=== PATIENT | male | born 1975 | race Caucasian/White ===

== ENCOUNTER 2017-06-30 06:05 | Day surgery (SDC) | payer BC ==
[2017-06-26 14:52] LABS: BASOPHILS % (AUTO) 0.3 % (0-1); EOSINOPHILS # (AUTO) 0.3 X10'3 (0-0.9); EOSINOPHILS % (AUTO) 3.7 % (0-6); LYMPHOCYTES # (AUTO) 2.9 X10'3 (1.1-4.8); LYMPHOCYTES % (AUTO) 38.4 % (21-51); MEAN CORPUSCULAR HEMOGLOBIN 30.8 PG (27.0-31.0); MEAN CORPUSCULAR HGB CONC 35.3 % (33.0-36.5); MEAN CORPUSCULAR VOLUME 87.3 FL (78-98); MEAN PLATELET VOLUME 6.4 FL (7.4-10.4); MONOCYTES # (AUTO) 0.5 X10'3 (0-0.9); MONOCYTES % (AUTO) 6.6 % (2-12); NEUTROPHILS # (AUTO) 3.8 X10'3 (1.8-7.7); PRE OP HEMATOCRIT 39.5 % (42.0-52.0); PRE OP PLATELET COUNT 251 X10'3 (140-440); RED BLOOD COUNT 4.53 X10'6 (4.70-6.10); RED CELL DISTRIBUTION WIDTH 15.2 % (11.5-14.5)
[2017-06-26 15:05] LABS: CHLORIDE 104 MMOL/L (99-107); GLUCOSE 123 MG/DL (70-104); POTASSIUM 3.5 MMOL/L (3.5-5.1); SODIUM 140 MMOL/L (135-145); TOTAL CARBON DIOXIDE 25.7 MMOL/L (24-32)
[2017-06-26 15:06] LABS: ALANINE AMINOTRANSFERASE 39 U/L (12-78); ALBUMIN/GLOBULIN RATIO 1.1 (1.1-1.5); ALKALINE PHOSPHATASE 74 IU/L (46-116); ANION GAP 10 (8-16); ASPARTATE AMINO TRANSFERASE 22 U/L (10-37); BILIRUBIN,TOTAL 0.4 MG/DL (0.1-1.0); BLOOD UREA NITROGEN 19 MG/DL (7-18); BUN/CREATININE RATIO 17.3 (5.4-32.0); CALCIUM 8.9 MG/DL (8.5-10.1); TOTAL PROTEIN 7.8 G/DL (6.4-8.2); eGFR 74 ML/MIN
[~2017-06-30] VITALS: Ht 180.3 cm; Wt 123.8 kg
[~2017-06-30 06:05] MED LIST: AMLO-325 PO; CHOL100046 PO; CITA20TA11 PO; HC A TD; LISI2.5T2 PO; METF500T7 PO; TERB250T4 PO; cefazolin 1gm/NS 100mL 100 ML IV ONE; famotidine 20mg tablet PO ONE; ringers solution, lacted 1,000 ML IV SCH
[2017-06-30 06:15] VITALS: BP 145/98
[2017-06-30] MEDS ORDERED: BUPIVAcaine/PF 2.5 mg/ml (0.25%) 30ml vial ONE (06:47)
[2017-06-30] MEDS ORDERED: LIDOcaine 0.5% (5mg/ml) 50ml vial ONE (08:10)
[2017-06-30] MEDS ORDERED: fentaNYL/PF 50MCG/1 ML 2ML syringe ONE (08:13)
[2017-06-30] MEDS ORDERED: midazolam 2 mg/2 ml injection ONE (08:14)
[2017-06-30] MEDS ORDERED: sodium bicarbonate 1 MEQ/1 ml inj ONE (08:29)
[2017-06-30] MEDS ORDERED: propofol inj 20 ML IV ONE (08:29)
[2017-06-30] MEDS ORDERED: ringers solution, lacted 1,000 ML IV SCH (08:34)
[2017-06-30] MEDS ORDERED: morphine 2 MG/ML inj. syringe IV PRN ×2 (08:35)
[2017-06-30] MEDS ORDERED: proCHLORperazine 10 MG/2 ml inj IV PRN (08:35)
[2017-06-30] MEDS ORDERED: meperidine/PF 50mg/ml syringe IV PRN (08:35)
[2017-06-30] MEDS ORDERED: ondansetron/PF 4mg/2ml inj IV PRN (08:35)
[2017-06-30] MEDS ORDERED: fentaNYL/PF 50MCG/1 ML 2ML syringe IV PRN ×2 (08:35)
[2017-06-30 08:39] VITALS: BP 134/87
[2017-06-30 08:49] VITALS: BP 96/41
[2017-06-30 08:59] VITALS: BP 105/88
[2017-06-30 09:09] VITALS: BP 133/78
[2017-06-30 09:19] VITALS: BP 137/91
== END 2017-06-30 09:29 | disposition home or self-care (01) ==
LOC: PAS 06:05 → EDUNIT# 08:15 → PAS 09:29
PROVIDERS: ATTEND Orthopaedic Surgery Hand Surgery
DX: G56.01 Carpal tunnel syndrome, right upper limb (principal); G47.33 Obstructive sleep apnea (adult) (pediatric); I10 Essential (primary) hypertension; E11.9 Type 2 diabetes mellitus without complications; Z79.84 Long term (current) use of oral hypoglycemic drugs; Z72.89 Other problems related to lifestyle; Z79.899 Other long term (current) drug therapy
CPT/HCPCS: 29848; 36415; 80053; 82948; 85025; 93005; A6449; J0690; J2001; J2250; J2704; J3010; J3490; A7000; J7120

== ENCOUNTER 2017-08-18 05:51 | Day surgery (SDC) | payer BC ==
[~2017-08-18] VITALS: Ht 180.3 cm; Wt 124.0 kg
[~2017-08-18 05:51] MED LIST changes: +METF500T PO; -METF500T7 PO; +ceFAZolin 2gm in dextrose, iso 100 ML IV ONE; -cefazolin 1gm/NS 100mL 100 ML IV ONE
[2017-08-18] MEDS ORDERED: LIDOcaine 1% (10mg/ml) 2ml vial ONE (06:17)
[2017-08-18] MEDS ORDERED: BUPIVAcaine/PF 2.5 mg/ml (0.25%) 30ml vial ONE (06:44)
[2017-08-18 06:54] LABS: BASOPHILS # (AUTO) 0.1 X10'3 (0-0.2); BASOPHILS % (AUTO) 1.1 % (0-1); EOSINOPHILS # (AUTO) 0.4 X10'3 (0-0.9); EOSINOPHILS % (AUTO) 4.8 % (0-6); HEMATOCRIT 38.7 % (42.0-52.0); HEMOGLOBIN 13.5 g/dl (14.0-17.9); LYMPHOCYTES # (AUTO) 2.8 X10'3 (1.1-4.8); LYMPHOCYTES % (AUTO) 36.3 % (21-51); MEAN CORPUSCULAR HEMOGLOBIN 31.1 PG (27.0-31.0); MEAN PLATELET VOLUME 6.7 FL (7.4-10.4); MONOCYTES # (AUTO) 0.5 X10'3 (0-0.9); NEUTROPHILS % (AUTO) 50.8 % (42-75); PLATELET COUNT 288 X10'3 (140-440); RED BLOOD COUNT 4.35 X10'6 (4.70-6.10); RED CELL DISTRIBUTION WIDTH 15.3 % (11.5-14.5); WHITE BLOOD COUNT 7.8 X10'3 (4.5-11.0)
[2017-08-18 06:58] VITALS: BP 126/76
[2017-08-18 06:59] VITALS: BP 126/76
[2017-08-18 07:18] LABS: ALANINE AMINOTRANSFERASE 37 U/L (12-78); ALBUMIN 3.8 G/DL (3.4-5.0); ALBUMIN/GLOBULIN RATIO 1.1 (1.1-1.5); ALKALINE PHOSPHATASE 68 IU/L (46-116); ANION GAP 11 (8-16); ASPARTATE AMINO TRANSFERASE 16 U/L (10-37); BILIRUBIN,TOTAL 0.3 MG/DL (0.1-1.0); BLOOD UREA NITROGEN 21 MG/DL (7-18); BUN/CREATININE RATIO 20.2 (5.4-32.0); CALCIUM 8.5 MG/DL (8.5-10.1); CHLORIDE 104 MMOL/L (99-107); CREATININE 1.04 MG/DL (0.60-1.10); GLUCOSE 121 MG/DL (70-104); SODIUM 140 MMOL/L (135-145); TOTAL PROTEIN 7.3 G/DL (6.4-8.2); eGFR 79 ML/MIN
[2017-08-18] MEDS ORDERED: LIDOcaine 0.5% (5mg/ml) 50ml vial ONE (08:03)
[2017-08-18] MEDS ORDERED: midazolam 2 mg/2 ml injection ONE (08:05)
[2017-08-18] MEDS ORDERED: fentaNYL/PF 50MCG/1 ML 2ML syringe ONE (08:05)
[2017-08-18 08:30] VITALS: BP 117/88
[2017-08-18] MEDS ORDERED: propofol inj 20 ML IV ONE (08:30)
[2017-08-18] MEDS ORDERED: meperidine/PF 50mg/ml syringe IV PRN ×3 (08:35)
[2017-08-18] MEDS ORDERED: ondansetron/PF 4mg/2ml inj IV PRN (08:35)
[2017-08-18] MEDS ORDERED: proCHLORperazine 10 MG/2 ml inj IV PRN (08:35)
[2017-08-18] MEDS ORDERED: ketorolac trometh. 30mg/ml inj. IV ONE (08:35)
[2017-08-18] MEDS ORDERED: acetaminophen 1,000mg/100ml IV 100 ML IV PRN (08:35)
[2017-08-18] MEDS ORDERED: morphine 4 MG/ML inj SYRINge IV PRN ×2 (08:35)
[2017-08-18] MEDS ORDERED: ringers solution, lacted 1,000 ML IV SCH (08:35)
[2017-08-18 08:40] VITALS: BP 125/95
[2017-08-18 08:50] VITALS: BP 119/89
[2017-08-18 09:00] VITALS: BP 121/79
== END 2017-08-18 09:00 | disposition home or self-care (01) ==
LOC: PAS 05:51
PROVIDERS: ATTEND Orthopaedic Surgery Hand Surgery
DX: G56.02 Carpal tunnel syndrome, left upper limb (principal); G47.33 Obstructive sleep apnea (adult) (pediatric); E11.9 Type 2 diabetes mellitus without complications; E66.9 Obesity, unspecified; I10 Essential (primary) hypertension; Z79.2 Long term (current) use of antibiotics; Z79.84 Long term (current) use of oral hypoglycemic drugs; Z79.891 Long term (current) use of opiate analgesic; Z79.899 Other long term (current) drug therapy; Z68.38 Body mass index [BMI] 38.0-38.9, adult
CPT/HCPCS: 29848; 36415; 80053; 82948; 85025; A6449; J0690; J2001; J2250; J2704; J3010; J3490; J7120; A7000